=== PATIENT | female | born 1990 | race African-American/Black ===

== ENCOUNTER 2019-09-15 02:41 | Emergency (ER) | payer OTHER ==
[~2019-09-15] VITALS: Ht 144.8 cm; Wt 49.9 kg
[2019-09-15 02:49] VITALS: BP 116/91
--- NOTE | 2019-09-15 03:08 | NUR ---
Pt walking out of room stating "I dont want to see a doctor. Im fine. Im leaving". Dr. Sheth did not see patient during this ER visit. This Rn requesting and encouraging patient to be seen by physician. Patient refuses. Walks out of ER at this time.
== END 2019-09-15 03:08 ==
LOC: ER 02:41
DX: M79.604 Pain in right leg (principal); Z53.21 Procedure and treatment not carried out due to patient leaving prior to being seen by health care provider